=== PATIENT | male | born 1990 | race Caucasian/White ===

== ENCOUNTER 2018-09-14 12:52 | Emergency (ER) | payer SELFPAY ==
[~2018-09-14] VITALS: Ht 170.2 cm; Wt 65.8 kg
[2018-09-14 13:14] VITALS: BP 147/89
--- NOTE | 2018-09-14 13:19 | NUR ---
ED Nurse Note: pt walked in with police officers, per officer, pt. was trying to use an object to help him, get out of the cuffs
--- NOTE | 2018-09-14 13:40 | Emergency Room Report ---
History of Present Illness General Chief Complaint: Medical Clearance Source: Patient Present Illness HPI 28-year-old male presents to the emergency department complaining of several abrasions/scratches to the left wrist 2 days. Patient reports injury occurred while he was high he states he is not sure what he was high on he states he was using drugs that he smoked. Patient denies self-harm attempt he denies SI/HI. Patient denies previous psychiatric hospitalizations or child's his psychiatric medications. Patient denies delusions, hallucinations, manic episodes. He denies IV drug use he denies fevers, chills, bleeding or bruising. Patient states that the wound has scabbed over now. Patient states he is up-to-date with tetanus vaccination he reports 5 out of 10 in severity burning pain denies any relieving factors. The medical complaints at this time. Patient is here for medical clearance for incarceration. Allergies: Coded Allergies: No Known Allergies (Unverified , 09/14/18) Patient History Past Medical History: see triage record Past Surgical History: none Social History: Reports: drug use Immunizations: UTD Reviewed Nursing Documentation: PMH: Agreed; PSxH: Agreed Nursing Documentation-PMH Past Medical History: No Stated History Review of Systems All Other Systems: negative except mentioned in HPI Physical Exam Vital Signs Date Time Temp Pulse Resp B/P (MAP) Pulse Ox O2 Delivery O2 Flow Rate FiO2 09/14/18 12:47 98.2 85 19 97 Room Air 09/14/18 13:14 147/89 Sp02 EP Interpretation: reviewed, normal General Appearance: no apparent distress, alert, GCS 15, non-toxic Head: normocephalic, atraumatic Eyes: bilateral eye normal inspection, bilateral eye PERRL ENT: hearing grossly normal, normal voice Neck: full range of motion Respiratory: lungs clear, normal breath sounds, speaking full sentences Cardiovascular #1: regular rate, rhythm, normal capillary refill Cardiovascular #2: 2+ radial (R), 2+ radial (L) Genitourinary: normal inspection Musculoskeletal: back normal, gait/station normal, normal range of motion, non- tender Neurologic: alert, oriented x3, responsive, motor strength/tone normal, sensory intact, speech normal, grossly normal Psychiatric: judgement/insight normal Skin: normal color, no rash, warm/dry, well hydrated, abrasions - several superficial excoriations that are scabbed on the inner left wrist. no bleeding, no erythema or warmth. good cap refil. pt. also has Lymphatic: no adenopathy Medical Decision Making PA Attestation Dr. Jang is my supervising Physician whom patient management has been discussed with. Diagnostic Impression: Primary Impression: Medical clearance for incarceration Additional Impression: Multiple abrasions ER Course 28-year-old male presents to the emergency department complaining of several abrasions/scratches to the left wrist 2 days. Patient reports injury occurred while he was high he states he is not sure what he was high on he states he was using drugs that he smoked. Patient denies self-harm attempt he denies SI/HI. Patient denies previous psychiatric hospitalizations or child's his psychiatric medications. Patient denies delusions, hallucinations, manic episodes. He denies IV drug use he denies fevers, chills, bleeding or bruising. Patient states that the wound has scabbed over now. Patient states he is up-to-date with tetanus vaccination he reports 5 out of 10 in severity burning pain denies any relieving factors. The medical complaints at this time. Patient is here for medical clearance for incarceration. Ddx considered but are not limited to Head Trauma, DE, ACS, SI/HI, URI, SAH, Fractures, Dislocations, Tazer barbs, Abrasions. Vital signs: are WNL, pt. is afebrile H&PE are most consistent with: normal limited physical examination. ORDERS: none required at this time, the diagnosis is clinical ED INTERVENTIONS: None required at this time. DISCHARGE: At this time pt. is stable for d/c to law enforcement. Will provide printed patient care instructions, and any necessary prescriptions. Care plan and follow up instructions have been discussed with the patient prior to discharge. Last Vital Signs Date Time Temp Pulse Resp B/P (MAP) Pulse Ox O2 Delivery O2 Flow Rate FiO2 09/14/18 13:14 98.2 85 19 147/89 97 Room Air Status: improved Disposition: HOME, SELF-CARE Condition: Stable Scripts Bacitracin/Polymyxin B Sulfate (BACITRACIN-POLYMYXIN OINTMENT) 28.35 Gm Oint...g. 1 APPLIC TP BID, #28.3 GM Prov: Edna Lo 5/6/19 Departure Forms: Assisted Clearance Patient Instructions: Medical Screening Exam Additional Instructions: Take any previously prescribed medications as directed. Follow up with a Primary Care Provider in 3-5 days, even if your symptoms have resolved. Return sooner to ED if new symptoms occur, or current symptoms become worse. - Please note that this Emergency Department Report was dictated using [employer] technology software, occasionally this can lead to erroneous entry secondary to interpretation by the dictation equipment. Edna Lo September 14, 2018 13:40
[2018-09-14] MEDS ORDERED: BACITRACIN-P28.35 GM TP (13:53)
[2018-09-14] MEDS ORDERED: Bacitracin Oint UD TOPIC ONE (14:00)
[2018-09-14 14:03] VITALS: BP 132/68
--- NOTE | 2018-09-14 14:03 | NUR ---
ED Nurse Note: Pt. AAOx4. kept the affected site clean and applied atb. gave d/c instructions and prescriptions to the deputy together the clearance note
== END 2018-09-14 14:03 | disposition home or self-care (01) ==
LOC: EDBD 12:52 → EMR 13:50
DX: S60.812A Abrasion of left wrist, initial encounter (principal); X58.XXXA Exposure to other specified factors, initial encounter; Y92.9 Unspecified place or not applicable
CPT/HCPCS: 99282